=== PATIENT | female | born 1990 | race Caucasian/White ===

== ENCOUNTER 2017-12-06 09:21 | Emergency (ER) | payer SELFPAY ==
--- NOTE | 2017-12-06 10:13 | RAD ---
LEFT KNEE FOUR VIEWS: History: 27-year-old female with history of left knee pain since Sunday after an injury. FINDINGS: No fracture, dislocation, or other acute process. IMPRESSION: Unremarkable left knee. POS: C
[2017-12-06 10:19] LABS: Bilirubin Negative (Negative); Blood, Urine Negative (Negative); Clarity CLEAR (Clear); Glucose, Urine (Dipstick) Negative (Negative); Leukocyte Small (Negative); Nitrite Negative (Negative); Protein, Urine (Dipstick) Negative (Neg-Trace); Specific Gravity, Urine 1.025 (1.002-1.036); Urobilinogen 0.2 mg/dL (0.2-1.0)
[2017-12-06 10:21] LABS: Bacteria/HPF 1+ HPF (None Seen); Hyaline Casts/LPF 0-3 HYALINE CAST LPF (0-3 Hyaline); Pathc Cast-AUWi Flag 0.13 (0-2.49); RBC/HPF 0-3 HPF (0-3); WBC/HPF 0-3 HPF (0-3)
[2017-12-06 10:27] LABS: Pregnancy Test - Urine (BHCG) Negative (Negative); Pregu Control Background? CLEAR/WHITE (CLR/WHITE); Pregu Control Bar Appear? YES (CONTROL BAR); Specific Gravity 1.025 (1.002-1.036)
[2017-12-06] MEDS ORDERED: Ketorolac Tromethamine 30 MG/ML VIAL ONE (10:42)
== END 2017-12-06 10:37 | disposition home or self-care (01) ==
LOC: ERS 09:21
DX: M25.562 Pain in left knee (principal)
CPT/HCPCS: 81003; 81015; 81025; 87086; 96372; J1885